=== PATIENT | male | born 1935 | race Caucasian/White ===

== ENCOUNTER → 2016-12-08 | Outpatient (CLI) | payer MEDICARE, BC ==
[~2016-12-08] MED LIST: ALBUTEROL2.5 MG/31 INH; APRESOLINE50 MG PO; ASCORBIC ACID500 MG PO; ASPIRIN LO-DOSE81 MG PO; BREO ELLIPTA 21 EACH INH; BUMEX1 MG PO; CATAPRES0.3 MG PO; COLACE100 MG PO; COREG12.5 MG PO; COZAAR50 MG PO; CPAP INH; DULCOLAX10 MG R; FISH OIL 1,0001 EAC1 PO; FLORASTOR250 MG PO; GLUCAGON EMERGEN1 MG SUB-Q; GLUCOPHAGE1000 MG; GLUCOPHAGE500 MG; GLUCOSE4 GM PO; IMDUR30 MG PO; INCRUSE ELLI62.5 MCG INH; K-TAB 10MEQ10 MEQ PO; LASIX40 MG PO; LEVAQUIN750 MG PO; LEVEMIR FL100 UNIT/1 SUB-Q; MILK OF MA400 MG/5 M PO; MIRALAX17 GM PO; NEURONTIN300 MG PO; NORCO 5-325 TA1 EACH PO; NORVASC10 MG PO; NOVOLOG100 UNIT/M SUB-Q; OSCAL + D500 MG PO; OXYGEN M-15 INH; PRESERVISION A1 EAC2 PO; THERA PO; TYLENOL EXTRA500 MG PO; ZANTAC150 MG PO; ZAROXOLYN5 MG
== END | disposition disaster alternative care site (69) ==
LOC: GRAD 11:30
DX: N28.9 Disorder of kidney and ureter, unspecified (principal); N28.1 Cyst of kidney, acquired

== ENCOUNTER 2017-02-26 17:00 | Inpatient (IN) | payer MEDICARE, BC ==
[~2017-02-26] VITALS: Ht 182.9 cm; Wt 92.6 kg
--- NOTE | ~2017-02-26 | DS ---
PATIENT'S NAME: SANTO SOLIMAN [facility] AGE: 81 Y [address] ROOM: [place] [address] LOCATION: GPCU ADMIT DATE: 02/26/2017 Discharge Summary DISCHARGE DATE: 03/05/2017 FAMILY PHYSICIAN: Lg Yarbrough MD ATTENDING PHYSICIAN: Mireya Hoff PRIMARY DIAGNOSES: 1. Acute on chronic hypoxic and hypercapnic respiratory failure. 2. Acute on chronic diastolic congestive heart failure. 3. Acute encephalopathy, hypoxic. 4. Acute kidney injury. 5. Chronic kidney disease, stage 3 to 4. 6. Essential hypertension. 7. Diabetes mellitus type 2. 8. Anemia of chronic kidney disease. 9. Gait instability. 10. Generalized weakness. 11. Lung cancer, status post radiation. 12. History of prostate cancer, status post radiation. 13. Obstructive sleep apnea. OPERATIONS/PROCEDURES: 1. Renal ultrasound was performed 02/27/2017, demonstrating no acute findings. 2. CT scan of the brain obtained 02/26/2017, negative for any acute intracranial abnormality. 3. CT scan of the abdomen and pelvis, 02/28/2017, demonstrated no hydronephrosis, bilateral pleural effusions and a left inguinal hernia containing fat. 4. Echocardiogram obtained 03/02/2017 showed ejection fraction 65%, grade 1 diastolic dysfunction. HISTORY OF PRESENTING ILLNESS/REASON FOR ADMISSION: Please refer to H and P dictated 02/26/2017. HOSPITAL COURSE: The patient has been admitted to the hospital as noted above with a presumptive diagnosis of acute on chronic diastolic congestive heart failure and acute on chronic hypoxic respiratory failure. He was transferred here from [facility] for impending hemodialysis, not available at that facility. He was seen in conjunction with Nephrology. Hunter catheter had been placed to promote diuresis, and he received IV diuresis with Bumex. He actually had good results with that, and his respiratory status improved. PATIENT'S NAME: SANTO SOLIMAN [facility] AGE: 81 Y [address] ROOM: [place] [address] LOCATION: GPCU ADMIT DATE: 02/26/2017 Discharge Summary DISCHARGE DATE: 03/05/2017 FAMILY PHYSICIAN: Lg Yarbrough MD ATTENDING PHYSICIAN: Mireya Hoff He did have CT scan of the head to evaluate encephalopathy. His encephalopathy improved with aggressive pulmonary hygiene and persistent diuresis. By the second day of his hospital stay here, he was back at baseline. He continued to receive diuresis and close clinical monitoring. He remained hemodynamically stable over the course of his hospital stay. Respiratory Therapy assisted with attention to pulmonary hygiene. Echocardiogram was obtained with the results as outlined above. His creatinine at the point of admission was 4.6. It did resolve to 4.2 by day #3 and remained relatively stable thereafter. His creatinine was 4.1 on the date of discharge. His fluid volume balance was negative. He did receive physical therapy and occupational therapy for strengthening and rehabilitation. We did discuss discharge planning with the patient and his . He was initially very reluctant to consider transfer to [place], however, it was felt that this would be required for continued intermediate care including physical therapy, occupational therapy, and close clinical monitoring. Dr. Agarwal requested vascular surgery consultation, and this was set up for outpatient. The patient was agreeable to consideration for AV fistula placement. By the end of the 6th day of his hospital stay, it was felt he would be stable enough for discharge to [facility] [place] with plans for close clinical followup with Nephrology as well as outpatient followup with his primary care provider, Dr. Lg Yarbrough, and outpatient followup with Vascular Surgery for vein mapping and ultimately AV fistula placement. DISCHARGE INSTRUCTIONS: Diet: Renal prudent ADA 2000-calorie per day as tolerated. Activity: As tolerated. He will have physical therapy, occupational therapy. MEDICATIONS: 1. Amlodipine 10 mg p.o. daily. 2. Ascorbic acid 500 mg p.o. daily. 3. Aspirin 81 mg p.o. daily. 4. Carvedilol 12.5 mg p.o. b.i.d. 5. Clonidine 0.3 mg p.o. t.i.d. 6. Hydralazine 50 mg p.o. t.i.d. 7. Insulin detemir 6 units subcutaneous q.a.m. 8. Insulin NovoLog per mild sliding scale. 9. Isosorbide mononitrate 30 mg p.o. b.i.d. 10. Multivitamin daily. 11. Holcomb-3 fish oil 1000 mg p.o. t.i.d. 12. Albuterol HFA 2 puffs p.o. b.i.d. and per nebulizer q.4 hours p.r.n. PATIENT'S NAME: SANTO SOLIMAN [facility] AGE: 81 Y [address] ROOM: [id number] [place], [place] [address] LOCATION: GPCU ADMIT DATE: 02/26/2017 Discharge Summary DISCHARGE DATE: 03/05/2017 FAMILY PHYSICIAN: Lg Yarbrough MD ATTENDING PHYSICIAN: Mireya Hoff 13. Acetaminophen 1000 mg p.o. q.6 hours p.r.n. 14. Colace 100 mg p.o. b.i.d. 15. Glucagon 1 mg subcu daily p.r.n. 16. Glucose 16 g p.o. daily p.r.n. 17. MiraLAX 17 g p.o. daily p.r.n. constipation. 18. Calcium with vitamin D 1 tablet p.o. t.i.d. 19. Incruse Ellipta 62.5 mcg one puff daily. 20. Breo Ellipta one puff daily. 21. Ranitidine 150 mg p.o. at bedtime. 22. Oxygen 4 L per nasal cannula continuously. 23. CPAP at bedtime. 24. Bumex 2 mg p.o. daily. FOLLOWUP: He will have followup with Dr. Lg Yarbrough in 5 to 7 days. He will follow up with Dr. Lester for vein mapping next week. He will follow up with Dr. Agarwal, Nephrology, in 1 week. CONDITION ON DISCHARGE: Fair. TOTAL TIME SPENT ON DISCHARGE PROCESS: 60 minutes. MD BRAYDON DELA CRUZ/lei /[id number] d: 03/06/172 t: 03/18/17 1814, DISCHARGE SUMMARY
--- NOTE | ~2017-02-26 | CON ---
PATIENT'S NAME: SANTO SOLIMAN [facility] AGE: 81 Y [address] ROOM: [place] [address] LOCATION: GPCU ADMIT DATE: 02/26/2017 Consultation DISCHARGE DATE: FAMILY PHYSICIAN: Lg Yarbrough MD ATTENDING PHYSICIAN: Kavya LUEVANO DATE OF CONSULTATION: 03/04/2017 REFERRING PHYSICIAN: PENNIE OMALLEY REASON FOR CONSULT: The patient with acute on chronic kidney disease in need of AV fistula creation. HISTORY OF PRESENT ILLNESS: This is an 81-year-old male, currently admitted to [facility] with elevated creatinine and shortness of breath. The patient has a chronic history of stage 4 chronic kidney disease from diabetes and hypertension. The patient was admitted at [facility] on February 17, 2017, initially admitted for headache and elevated hypertension. At that time, he was noted to have elevated creatinine. He was treated with blood pressure medication and diuretics. The patient's creatinine did not improve and continued to increase. The patient did get transferred to [facility] because of no nephrology coverage at [facility]. We are asked to see the patient in regard to creating an AV fistula to be ready for any future need of hemodialysis. The patient is alert and oriented during the interview. He denies any chest pain or shortness of breath. Denies any fevers or chills. Denies any cough. Denies any claudication or edema. PAST MEDICAL HISTORY: 1. Diabetes mellitus type 2. 2. Chronic kidney disease, stage 4. 3. Hypertension. 4. COPD. 5. Lung cancer, status post radiation. 6. Prostate cancer, status post radiation. 7. Obstructive sleep apnea. 8. Congestive heart failure, diastolic, from last echo in 2014. 9. Proteinuria. PAST SURGICAL HISTORY: No prior surgery. FAMILY HISTORY: Brother who of leukemia. PATIENT'S NAME: SANTO SOLIMAN [facility] AGE: 81 Y [address] ROOM: [place] [address] LOCATION: GPCU ADMIT DATE: 02/26/2017 Consultation DISCHARGE DATE: FAMILY PHYSICIAN: Lg Yarbrough MD ATTENDING PHYSICIAN: Kavya LUEVANO SOCIAL HISTORY: The patient lives in [place] with his life. He is a former smoker, but quit in 1985. He denies any alcohol or illicit drug use. ALLERGIES: TRAMADOL. CURRENT MEDICATIONS: See medication reconciliation. REVIEW OF SYSTEMS: A 10-point review of systems completed. Positives addressed in the history of presenting illness. PHYSICAL EXAMINATION: VITAL SIGNS: Temperature 98.4, heart rate 62, respiratory rate 16, blood pressure 142/64, oxygen saturations 92% on 2 L. GENERAL: The patient is alert and oriented x3. He is a good historian and in no acute distress. SKIN: Warm, pink, and dry. No rashes or ulcers. HEENT: Head normocephalic and atraumatic. Ears without drainage. Eyes: Sclerae white. Conjunctivae pink. Extraocular movements intact. Nose: Without drainage. Throat: Oral mucosa pink and moist. No exudate or erythema. NECK: Without adenopathy. No carotid bruit. RESPIRATORY: Lung sounds clear to auscultation bilaterally, even and unlabored. CARDIOVASCULAR: Regular rate and rhythm. No murmur or extra sounds. GASTROINTESTINAL: Bowel sounds are active x4. Soft and nontender. EXTREMITIES: Bilateral arms without trauma. He does have an IV to his left forearm. Brachial and radial pulses are 2+ on palpation. No cyanosis. No edema. Active range of motion throughout. NEUROLOGICAL: No focal deficits. Moves all extremities. Strength 5/5 bilaterally. LABORATORY DATA: Chemistry: Sodium 142, potassium 4.0, chloride 107, CO2 of 26, BUN 59, creatinine 4.4, glucose 136. Hematology: White blood cell count 4.8, hemoglobin 8.4, hematocrit 26.1, platelets 137. IMPRESSION AND PLAN: Acute on chronic kidney disease. Creatinine currently 4.4. The patient is an appropriate candidate for fistula creation. Therefore, we will go ahead and obtain fistula vein mapping today while the patient is inpatient. The patient will potentially be discharging tomorrow. Dr. Lester is out of town until PATIENT'S NAME: SANTO SOLIMAN [facility] AGE: 81 Y [address] ROOM: [id number] [place], [place] [address] [facility] ADMIT DATE: 02/26/2017 Consultation DISCHARGE DATE: FAMILY PHYSICIAN: Lg Yarbrough MD ATTENDING PHYSICIAN: Kavya LUEVANO next week. We will plan for surgery as an outpatient. The patient is right handed, so it would be best to plan for a left arm arteriovenous fistula. However, if the patient's veins are not adequate on vein mapping, he would require an arteriovenous graft. PATRICIA GARCIA APRN FOR KENYATTA LESTER MD TO/lei /[id number] d: 03/04/17 2211 t: 03/11/17 1054, CONSULTATION REPORT
--- NOTE | ~2017-02-26 | HP ---
PATIENT'S NAME: SANTO SOLIMAN [facility] AGE: 81 Y [address] ROOM: [id number] [place], [place] [address] LOCATION: GPCU ADMIT DATE: 02/26/2017 History & Physical DISCHARGE DATE: FAMILY PHYSICIAN: PHYSICIAN, UNKNOWN ATTENDING PHYSICIAN: Kavya LUEVANO DATE OF SERVICE: CHIEF COMPLAINT: DOE. HISTORY OF PRESENT ILLNESS: The patient is an 81-year-old gentleman with history of CKD, stage 3 to 4, hypertension, diabetes mellitus, COPD, history of lung cancer and prostate cancer, status post radiation in remission who presents from [facility] due to acute kidney injury. The patient was admitted at [facility] on February 17, 2017. The patient was initially admitted for headache and elevated hypertension. On admission, the patient was noted to have elevated creatinine. The patient was admitted in [facility] and was treated with blood pressure medication and also with diuretics. The patient's creatinine did not improve and continued to increase on admission, according to Dr. Justin Juniro who has seen him at the hospital. His initial creatinine was 3 and on discharge his creatinine 4.6. Also, the patient also noted to have hyperkalemia with this issue. The patient was seen by Dr. Agarwal at [facility] and the patient was transferred to our hospital since Dr. Agarwal is on vacation and the patient might need dialysis over the weekends. The patient also was noted to have proteinuria on urine workup. Apparently, the patient has had some intermittent confusion during stay. No workup has been done about his confusion. According to , the patient has a history of dementia and is forgetful. The patient currently denies any chest pain, shortness of breath, abdominal pain, fever, cough, nausea, vomiting, diarrhea, and headache. Of note, the patient has chronic hypoxic respiratory failure and is on 4 L home oxygen. PAST MEDICAL HISTORY: Diabetes mellitus, type 2, CKD, stage 3 to 4, hypertension, COPD, lung cancer, status post radiation, prostate cancer, status post radiation, obstructive sleep apnea, and CHF, which seem to be diastolic at least from the last echo that we have in 2014. PAST SURGICAL HISTORY: reports and the patient reports no surgical history. FAMILY HISTORY: reports that his brother from leukemia. PATIENT'S NAME: BALS, SANTO H [facility] AGE: 81 Y [address] ROOM: [id number] [place], [place] [address] [facility] AD[facility]: 02/26/2017 History & Physical DISCHARGE DATE: FAMILY PHYSICIAN: PHYSICIAN, UNKNOWN ATTENDING PHYSICIAN: Kavya LUEVANO SOCIAL HISTORY: He is a former smoker and stopped smoking in 1985. He lives with his . MEDICATIONS: Medication is currently been reconciled. REVIEW OF SYSTEMS: All systems have been reviewed and are negative except for what I mentioned. PHYSICAL EXAMINATION: VITAL SIGNS: Afebrile, blood pressure 162/72, heart rate 76, 92% oxygen sat on 4 L. GENERAL APPEARANCE: The patient is alert and awake in no acute distress. HEAD: Normocephalic, atraumatic. EYES: Extraocular muscle intact. No discharge. NOSE: No nasal discharge. EARS: No ear discharge. ORAL CAVITY: Moist oral cavity. CHEST: Clear to auscultation bilaterally. HEART: Regular rate and rhythm. No murmurs, rubs, or gallops. ABDOMEN: Soft, nontender, and nondistended. Bowel sounds present. EXTREMITIES: Lower extremity +2 pitting edema bilaterally. SKIN: Warm to touch. SUPERVISOR PLASMA: The patient is alert and oriented x2. The patient is not oriented to place. Motor and sensory grossly intact. LABORATORY DATA: 1. Labs drawn from [facility] today shows sodium of 133, potassium of 5.4, chloride of 106, CO2 of 25, BUN of 89, creatinine of 8.5, calcium of 10.6, and albumin of 2.8. His white blood cell count is 8.3, hemoglobin 9.2, and platelet of 177. 2. Tele shows normal sinus rhythm with corrected calcium 11.6. ASSESSMENT AND PLAN: 1. Acute kidney injury. The patient is an 81-year-old gentleman with a past medical history of chronic kidney disease, stage 3 to 4, who presents here from outside hospital with acute kidney injury on chronic kidney disease. The patient initially was found to have elevated hypertension on admission; however, blood pressure has been stabilized since admission at [facility]. The patient was tried on a trial of diuretics without adequate improvement. His creatinine is currently 4.8 and potassium 5.4 at least from the last lab. Etiology seems to be secondary to hypertension and diabetic; however, the patient was also showing elevated calcium at 11.6 corrected and has a history of cancer. We will PATIENT'S NAME: SANTO SOLIMAN [facility] AGE: 81 Y [address] ROOM: [id number] [place], [place] [address] [facility] DATE: 02/26/2017 History & Physical DISCHARGE DATE: FAMILY PHYSICIAN: PHYSICIAN, UNKNOWN ATTENDING PHYSICIAN: Kavya LUEVANO workup calcium elevation. We will also acquire kidney ultrasound as there is no kidney ultrasound done at [facility]. We will give a trial of intravenous fluids since the patient has elevated calcium and since he has somewhat failed diuretics. The patient appears might be having pitting edema, but might be intravascularly depleted. Nephrology consulted and discussed with Dr. Blancas. There is no need for emergent dialysis at this moment. We will follow the patient clinically. 2. Hypercalcemia, etiology unknown, calcium 11.6. At [facility], the patient was given calcium supplement and we will stop that. We will acquire urine creatinine, urine calcium, urine osmol, vitamin D-125 hydroxy level, PTH intact, and PTH related peptide. After these labs, we will revaluate and follow the patient clinically. Also, discussed this finding with Dr. Blancas. 3. Chronic hypoxic respiratory failure, continue home oxygen 4 L. 4. Accelerated hypertension, stable. We will continue hydralazine, amlodipine, Coreg, and clonidine. We will hold diuretics for now. We will also add Imdur. 5. Hyperkalemia, etiology secondary to acute kidney injury, holding the diuretics for now. We will acquire another renal function panel and also acquire EKG. Last potassium was 5.4. We will start intravenous fluid. We will follow potassium closely. 6. Diabetes mellitus, type 2. Continue sliding scale insulin with aspart with low-dose and Accu-Chek a.c. h.s. 7. Headache. The patient presented with headache and some worsening of confusion. The patient has a history of dementia. The patient currently alert and oriented x2. We will acquire CT head to further investigate. 8. History of prostate and lung cancer, status post radiation, follow up with oncologist as outpatient. 9. Congestive heart failure, which appears diastolic congestive heart failure, we will acquire new echo. The patient appears compensated now. We will hold diuretics. 10. Dementia, ongoing. I have personally reviewed the patient's medical record including, but not limited to blood work and radiology report. Total time spent with the patient is greater than 70 minutes more than 50% of the time is spent in direct patient care and patient consultation. Case was reviewed with the patient and . All question was answered. Case was reviewed with Nephrology Dr. Blancas. We will admit the patient for acute kidney injury. BASSEM CACERES MD AD/modl PATIENT'S NAME: SANTO SOLIMAN [facility] AGE: 81 Y [address] ROOM: [address] [address] [facility] AD[facility] DATE: 02/26/2017 History & Physical DISCHARGE DATE: FAMILY PHYSICIAN: PHYSICIAN, UNKNOWN ATTENDING PHYSICIAN: Kavya LUEVANO /[id number] D: [id number] T: [id number] HISTORY & PHYSICAL
--- NOTE | ~2017-02-26 | CON ---
[facility] AGE: 81 Y [address] ROOM: [place] [address] LOCATION: GPCU ADMIT DATE: 02/26/2017 Consultation DISCHARGE DATE: FAMILY PHYSICIAN: PHYSICIAN, UNKNOWN ATTENDING PHYSICIAN: Kavya LUEVANO DATE OF CONSULTATION: 02/28/2017 REFERRING PHYSICIAN: PENNIE OMALLEY REQUESTING PHYSICIAN: Matthew Espinoza MD. REASON FOR CONSULTATION: Elevated BUN and creatinine and shortness of breath. HISTORY OF PRESENT ILLNESS: The patient is an 81-year-old, white male with history of stage 4 chronic kidney disease from diabetes and hypertension. He also had acute kidney injury in 2013 and after that his kidney function did not improve. The patient does have approximately 2 g of proteinuria and workup is in progress. The patient was recently hospitalized at [facility] with accelerated hypertension and weakness. His creatinine at that point had gone up to a maximum of 4.6. He is still making urine. The patient did get transferred to [facility] because there was no nephrology coverage at [facility]. I have been asked to see him, and this morning his creatinine is 4.2. The patient suddenly got short of breath. He does have chronic congestive heart failure from diastolic dysfunction. He is normally on 4 L of oxygen. He also has a history of lung cancer and prostate cancer. REVIEW OF SYSTEMS: GENERAL: He denies any fever, chills, or rigors. He is weak and tired. HEENT: Denies any sore throat or sinus congestion. CARDIOVASCULAR: Denies chest pain. He has orthopnea. RESPIRATORY: Denies any cough or sputum production. GI: He has poor appetite. : Denies any dysuria or frequency. MUSCULOSKELETAL: Denies any joint pain or swelling. SKIN: Denies any rash or pruritus. Denies any allergies or hay fever. LYMPHATIC/HEMATOLOGIC: Denied any lymph enlargement or easy bruising. Denies any heat or cold intolerance. PSYCHIATRIC: Denies any sadness, crying spells, poor concentration, or panic attack. PAST MEDICAL HISTORY: PATIENT'S NAME: [facility] AGE: 81 Y [address] ROOM: [place] [address] LOCATION: GPCU ADMIT DATE: 02/26/2017 Consultation DISCHARGE DATE: FAMILY PHYSICIAN: PHYSICIAN, UNKNOWN ATTENDING PHYSICIAN: Kavya LUEVANO Stage 4 chronic kidney disease, proteinuria, hypertension, COPD, diabetes mellitus, lung cancer, status post radiation therapy, prostate cancer, obstructive sleep apnea, congestive heart failure from diastolic dysfunction. PAST SURGICAL HISTORY: No prior surgery. SOCIAL HISTORY: He lives in [place] with his . He is a former smoker, quit smoking in 1985. FAMILY HISTORY: One brother of leukemia. MEDICATIONS: 1. Albuterol sulfate one puff twice a day. 2. Lasix 40 mg IV every day. 3. Hydralazine 50 mg 3 times a day. 4. Aspirin 81 mg a day. 5. Catapres 0.3 mg 3 times a day. 6. Coreg 12.5 mg twice a day. 7. Fish oil 1000 mg 3 times a day. 8. Humibid LA 1200 mg twice a day. 9. Imdur 30 mg every day. 10. Norvasc 10 mg a day. 11. Pepcid 20 mg q.h.s. 12. Protonix 40 mg a day. 13. Multivitamin once a day. 14. NovoLog by sliding scale. 15. Levemir 6 units subcutaneously every morning. PHYSICAL EXAMINATION: GENERAL APPEARANCE: This is an 81-year-old, white male, lying in the hospital bed, wearing oxygen via nasal cannula. VITAL SIGNS: Temperature 97.7, pulse 74, systolic blood pressure 160, diastolic 70. HEAD: Normocephalic. HEENT: Pupils are round and equal. Normal eyelids and conjunctivae. Oral cavity is clear. Moist mucosa. NECK: Trachea is central. No thyromegaly. Jugular venous pulsation at 10 cm. CARDIAC: Heart sounds are audible in all the areas without any gallop or murmur. There is no pericardial rub. Pulses regular in rhythm. LUNGS: The patient has diminished breath sounds as a whole and he has bibasilar rhonchi. PATIENT'S NAME: SANTO SOLIMAN [facility] AGE: 81 Y [address] ROOM: [place] [address] [facility] ADMIT DATE: 02/26/2017 Consultation DISCHARGE DATE: FAMILY PHYSICIAN: PHYSICIAN, UNKNOWN ATTENDING PHYSICIAN: Kavya LUEVANO ABDOMEN: Soft, nontender. EXTREMITIES: He has no clubbing or cyanosis. SKIN: No signs of vasculitis. LYMPHATICS: Did not examine lymphatics. HIGHER PSYCHIATRIC FUNCTION. Normal memory and speech. LABORATORY DATA: Sodium 144, potassium 4.7, chloride 110, bicarb of 20, BUN 83, creatinine 4.2, calcium 8.4, albumin of 2.3, GFR 14. Hemoglobin 8.3, hematocrit 26.1, and platelet count of 141. ASSESSMENT: 1. Acute on chronic kidney injury, etiology remains unclear, but this could be related to accelerated hypertension. The patient was noted to have a high blood pressure when he was admitted to the [facility]. He does have proteinuria and he has not had a kidney biopsy. The patient does carry a diagnosis of diabetes. 2. Stage 4 chronic kidney disease. 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 3. Chronic obstructive pulmonary disease. 4. Hypertension. 5. History of lung and prostate cancers. 6. Chronic congestive heart failure from diastolic dysfunction. PLAN: The patient is short of breath and he has prominent jugular veins, is most likely in active heart failure. I will give him 4 mg of IV Bumex and if he does not respond to this, then we may have to consider doing hemodialysis therapy. I have extensive discussion with him and also with his family members about his chronic kidney status. Kidneys are working about 10-15% of what it should have been for his age and sex. He may not only need temporary dialysis, but he may require long-term dialysis therapy. I will educate him further about renal replacement therapy and he will decide whether he will go for renal replacement therapy or not. I will follow his renal function very closely. I would like to thank Dr. Espinoza for allowing me to participate in this patient's care. M PARK CUENCA MD PATIENT'S NAME: SANTO SOLIMAN [facility] AGE: 81 Y [address] ROOM: [place] [address] LOCATION: [facility] ADMIT DATE: 02/26/2017 Consultation DISCHARGE DATE: FAMILY PHYSICIAN: PHYSICIAN, UNKNOWN ATTENDING PHYSICIAN: Kavya LUEVANO /[id number] d: 02/28/17 1248 t: 03/04/17 1326, CONSULTATION REPORT
--- NOTE | ~2017-02-26 | ECHO ---
Transthoracic Echocardiography Report (TTE) Demographics Patient Name SANTO SOLIMAN Date of Study 03/02/2017 Patient Number [id number] Visit Number [id number] Date of 1935 Room Number G6339 Gender Male Number Age 81 year(s) Referring Zenon Christy MD Patient Escort Oniel RVT, [facility] Physician Erin Physician Interpreting Hayden Waldrop MD Director Of Dementia Operations Physician Supervising Ordering Mireya Hoff MD/TITO Physician Nurse Stress Nuisance Animal Damage Control Agent Conclusions Contractility Score Summary Normal Left Ventricular contractility was noted. Summary Normal LV/RV size and systolic function. LV systolic function is 65%. Mild concentric left ventricular hypertrophy. Diastolic assessment reveals Grade I diastolic dysfunction. The right atrium is mild to moderately dilated. The left atrium is mildly dilated. Procedure Type of Study TTE procedure:2D Echocardiogram, M-Mode, Doppler , Color Doppler. Procedure Date Date: 03/02/2017 Start: 07:18 AM Study Location: Inpatient Portable Technical Quality: Adequate visualization Indications:CHF. Appropriate Use Criteria: 9 Patient Status: Routine HR: 64 bpm BP: 150/67 mmHg M-Mode/2D Measurements LV Diastolic Dimension: 4.34 cm LV Systolic Dimension: 2.46 cm LV Septum Diastolic: 1.25 cm LV PW Diastolic: 1.32 cm AO Root Dimension: 2.7 cm Cardiac Output: 6.51 l/min AV Cusp Separation: 1.9 cm RV Diastolic Dimension: 3.24 cm LA volume: 44 ml LVOT: 2 cm RV Base: 3.49 cm LVOT VTI: 32.4 cm RV Mid: 2.61 cm LV Stroke volume: 101.74 ml TAPSE: 1.97 cm TDI-S': 17.8 cm/s Doppler Measurements AV Peak Velocity: 1.72 m/s MV Peak E-Wave: 1.09 m/s AV Peak Gradient: 11.83 mmHg MV Peak A-Wave: 1.47 m/s AV Mean Gradient: 8 mmHg MV E/A Ratio: 0.74 LVOT Peak Velocity: 1.09 m/s MV P1/2t: 95 msec TR Gradient:26.63 mmHg PV Peak Velocity: 0.94 m/s Estimated RAP:3 mmHg PV Peak Gradient: 3.55 mmHg Estimated RVSP: 30 mmHg Estimated PASP: 29.63 mmHg E' Septal Velocity: 0.06 m/s A' Septal Velocity: 0.08 m/s E' Lateral Velocity: 0.09 m/s A' Lateral Velocity: 0.14 m/s Findings Left Ventricle Mild concentric left ventricular hypertrophy. Diastolic assessment reveals Grade I diastolic dysfunction. Right Ventricle Normal right ventricle structure and function. Left Atrium The left atrium is mildly dilated. Right Atrium The right atrium is mild to moderately dilated. Mitral Valve Trivial mitral regurgitation by color Doppler. Mild mitral annular calcification. Aortic Valve Normal aortic valve structure and function. Tricuspid Valve Trivial tricuspid regurgitation by color Doppler. Pulmonic Valve The pulmonic valve is not well visualized. Pericardial Effusion No evidence of pericardial effusion. Pleural Effusion No evidence of pleural effusion. Contractility Score LV regional wall motion:(0-Non visualized 1-Normal 2-Hypokinesis 3-Akinesis 4-Dyskinesis 5-Aneurysm) Signature dtt: LIYA LUX dtd: 03/02/17 0718 Physician Self Edit
[~2017-02-26 17:00] MED LIST changes: -APRESOLINE50 MG PO; -BUMEX1 MG PO; -COLACE100 MG PO; -COZAAR50 MG PO; -DULCOLAX10 MG R; -GLUCAGON EMERGEN1 MG SUB-Q; -GLUCOSE4 GM PO; -IMDUR30 MG PO; -MILK OF MA400 MG/5 M PO; -NORCO 5-325 TA1 EACH PO; -NOVOLOG100 UNIT/M SUB-Q; -PRESERVISION A1 EAC2 PO; -THERA PO
[2017-02-26] MEDS ORDERED: ALBUTEROL2.5 MG/31 INH (19:18)
[2017-02-26] MEDS ORDERED: PRESERVISION A1 EAC2 PO (19:29)
[2017-02-26] MEDS ORDERED: COLACE100 MG PO (19:31)
[2017-02-26] MEDS ORDERED: COZAAR50 MG PO (19:31)
--- NOTE | 2017-02-26 20:23 | NUR ---
Patient is 81 yo male admitted this evening for HTN w/kidney dysfunction from [facility]. pt has been a patient there for 9 days. went to the ER there for weakness, HTN and headache. had thought he was getting weaker for 3 days prior to admission. Patient lives with in [place]. He used to live at [place] where he was a anthony. 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 patient is very pleasant. seems to answer questions appropriately, but the is some question of his memory. saline lock is noted in left forearm without erythema or edema noted at site. Education is given as documented. patient, and son deny questions. pneumatics are on bilat calves. call light is within reach. patient denies needs at this time. report is given to JANENE Rogel.
[2017-02-26 20:32] LABS: ALBUMIN 2.8 gm/dL (3.5-5.0); ANION GAP 14.4 (10.0-19.0); CALCIUM 9.9 mg/dL (8.5-10.5); POTASSIUM 5.4 mMol/L (3.7-5.1); TOTAL BILIRUBIN 0.4 mg/dL (0.0-1.5); TOTAL PROTEIN 6.5 g/dL (6.0-8.4)
[2017-02-26 20:34] LABS: CREATININE 4.6 mg/dL (0.6-1.3)
--- NOTE | 2017-02-26 23:53 | NUR ---
Patient hadn't been felling well at home weakness, high blood pressure, and headaches. Admitted to [facility] on 02/17. Transferred here for DOE. Patient oriented to self and time but disoriented to place. VSS on 4L NC. Lung course and wheezy, harsh productive cough. Bowel sounds present. New IV to LT forearm NS at 100ml/hr. Bottom and ibraihma area reddened. ISSA and Renal US in am. NPO. Dr. Blancas to see in am.
--- NOTE | 2017-02-27 04:53 | NUR ---
Patient A/O to person, very forgetful, easily reoriented. VSS on 4L per home. One assist with walker. Lungs course/wheezy. Bowel sounds present, 1 LG BM this shift. IV to LT forarm NS at 100ml/hr. Uses urinal at bedside. Bed alarm patient is impulsive but sometimes uses call light. NPO for renal US this am.
[2017-02-27 06:20] LABS: HEMOGLOBIN 8.7 g/dL (11.0-16.0); MCH 29.3 pg (27.0-34.0); MCHC 32.2 gm/dL (32.0-36.5); MCV 90.9 fl (83.0-98.0); MPV 10.2 fl (9.4-12.4); PLATELET COUNT 144 K/uL (150-450); RBC 2.97 M/uL (3.50-5.50); RDW-CV 14.2 % (11.9-14.6); WBC 6.3 K/uL (4.0-11.0)
[2017-02-27 06:34] LABS: ALBUMIN 2.4 gm/dL (3.5-5.0); ANION GAP 13.9 (10.0-19.0); CALCIUM 9.1 mg/dL (8.5-10.5); CREATININE 4.3 mg/dL (0.6-1.3); POTASSIUM 4.9 mMol/L (3.7-5.1); TOTAL BILIRUBIN 0.4 mg/dL (0.0-1.5); TOTAL PROTEIN 5.4 g/dL (6.0-8.4)
[2017-02-27 06:51] LABS: ABSOLUTE NEUTROPHIL CT (ANC) 4.7 K/uL (1.4-9.0); BANDED NEUTROPHIL # 0.3 K/uL (0.0-0.1); BANDED NEUTROPHILS % 4 %; LYMPHOCYTE # 0.5 K/uL (0.8-4.0); LYMPHOCYTE % 8 %; MONOCYTE # 0.9 K/uL (0.0-1.0); SEGMENTED NEUTROPHIL # 4.4 K/uL (1.4-9.0); SEGMENTED NEUTROPHIL % 70 %
--- NOTE | 2017-02-27 09:29 | NUR ---
PT SCREENED D/T (+) MST. PT W/ GOOD APPETITE, EATING 75-100%. BMI IN OVERWEIGHT RANGE. BASED ON CURRENT DATA, NOT AT RISK. WILL ASSIST NEEDED.
--- NOTE | 2017-02-27 16:23 | NUR ---
Significant event: Alert. Oriented, but forgetful. Needs bed alarm on at all times, forgets limitations. Renal u/s and echo done today. Monitoring renal status, dialysis not needed as of right now. On 4L O2, to wean to keep sats 88-95%, patient does wear 4 L 02 at home, and a CPAP HS. will bring CPAP and inhalers tomorrow morning. SBP this AM 170-180, given scheduled BP meds, has since been 120-140's. NS decreased to 70 ml/hr, need accurate I&O's. Groins looking slightly better today, not as red. Buttock's still excoriated, using moisture barrier cream as needed. Had smear this AM. Using urinal. Had 400 ml UOP. Lung sounds expiratory wheezes at times, fine crackles to bases, cough with thick brown sputum at x's, has not been able to obtain sputum culture yet. Follow Up: Continue to monitor per POC
[2017-02-28 02:55] LABS: HEMATOCRIT 26.1 % (33.0-50.0); HEMOGLOBIN 8.3 g/dL (11.0-16.0); MCH 29.2 pg (27.0-34.0); MCHC 31.8 gm/dL (32.0-36.5); MCV 91.9 fl (83.0-98.0); PLATELET COUNT 141 K/uL (150-450); RBC 2.84 M/uL (3.50-5.50); RDW-CV 14.2 % (11.9-14.6); WBC 5.5 K/uL (4.0-11.0)
[2017-02-28 03:13] LABS: ALBUMIN 2.3 gm/dL (3.5-5.0); ANION GAP 12.7 (10.0-19.0); CALCIUM 8.4 mg/dL (8.5-10.5); POTASSIUM 4.7 mMol/L (3.7-5.1); TOTAL PROTEIN 5.3 g/dL (6.0-8.4)
[2017-02-28 03:15] LABS: CREATININE 4.2 mg/dL (0.6-1.3); TOTAL BILIRUBIN 0.5 mg/dL (0.0-1.5)
[2017-02-28 04:00] LABS: ABSOLUTE NEUTROPHIL CT (ANC) 4.4 K/uL (1.4-9.0); BANDED NEUTROPHIL # 0.2 K/uL (0.0-0.1); BANDED NEUTROPHILS % 4 %; LYMPHOCYTE # 0.4 K/uL (0.8-4.0); LYMPHOCYTE % 8 %; MONOCYTE # 0.5 K/uL (0.0-1.0); SEGMENTED NEUTROPHIL # 4.1 K/uL (1.4-9.0); SEGMENTED NEUTROPHIL % 75 %
--- NOTE | 2017-02-28 04:20 | NUR ---
Significant Event: PATIENT IS DISORIENTED TO TIME AND FORGETFUL. VSS. HR 60'S. SBP 120-140'S. AFEBRILE. 02 SATS IN UPPER 80 TO LOW 90'S ON 4L 02 PER NC. NO C/O PAIN. LUNGS VARRIED FROM SLIGHT COARSE WITH CRACKLES TO EXPIRATORY WHEEZES THROUHGOUT. UP WITH 1A WITH WALKER/GB. BOWELS ACTIVE. INC ON VOID AT TIMES. VOIDS PER URINAL. BRIEF ON. BOTTOM REDNESS AND GROINS EXCORIATED BUT IMPROVED. ALOE APPLIED AND PATIENT TURNED Q2H. LEFT FOREARM IV WITH NS GOING AT 70ML/HR. ON [facility] ACCUCHECKS. Follow up: CONTINUE TO MONITOR PER PLAN OF CARE.
[2017-02-28 08:53] LABS: BICARBONATE 25.4 mmol/L (18.0-23.0); PCO2 40 mmHg (35-45); PO2 52 mmHg (80-90)
[2017-02-28 11:02] LABS: INR - (THERAPEUTIC) 0.95 (0.89-1.05)
--- NOTE | 2017-02-28 16:27 | NUR ---
Significant event: Alert, Oriented to person/place, disoriented to time, but will reorient. Short of breath this AM, tried breathing treatment with no relief. Lung sounds were expiratory wheezes throughout, slightly coarse in upper lobes and fine crackles to lower and mid lobes. MD notified, IVF d/c'd, 40 mg of lasix given at 0930. Hunter catheter was placed and immediately had 650 ml out. ABG's done, BIPAP initiated, c-xray done. Patient felt better at 1100, back to 4L NC. CT of abdomen done, showing no hydronephrosis. Patient has been resting, napping on/off. Follow Up: Continue to monitor, call if patient has shortness of breath again.
--- NOTE | 2017-03-01 04:12 | NUR ---
Significant Event: PATIENT IS DISORIENTED TO TIME AND FORGETFUL. VSS. HR 60'S. SBP 130-150'S. AFEBRILE. 02 SATS IN LOW TO MID 90'S CURRENTLY ON HOME CPAP. WEARS 4L 02 PER NC DURING DAY. NO C/O PAIN. LUNGS VARRIED FROM SLIGHT COARSE WITH CRACKLES ALONG WITH EXPIRATORY WHEEZES. BREATHING LABORED AND PATIENT MORE SOB AT BEGINNING OF SHIFT. DR CUENCA NOTIFIED AND 4MG IVP BUMEX GIVEN. PATIENT UP WITH 1A. BOWELS ACTIVE. JUNIOR INTACT WITH 1600 ML UOP. BOTTOM/GROIN REDNESS WITH EXCORIATION. ALOE APPLIED. IV TO LEFT FOREARM SL. ON ACHS ACCUCHECKS. Follow up: CONTINUE TO MONITOR RENAL FUNCTION AND PER PLAN OF CARE.
[2017-03-01 06:58] LABS: HEMATOCRIT 27.5 % (33.0-50.0); HEMOGLOBIN 8.8 g/dL (11.0-16.0); MCH 29.2 pg (27.0-34.0); MCV 91.4 fl (83.0-98.0); MPV 10.3 fl (9.4-12.4); PLATELET COUNT 133 K/uL (150-450); RBC 3.01 M/uL (3.50-5.50); RDW-CV 14.1 % (11.9-14.6); WBC 6.5 K/uL (4.0-11.0)
[2017-03-01 07:15] LABS: ALBUMIN 2.4 gm/dL (3.5-5.0); CALCIUM 8.4 mg/dL (8.5-10.5); TOTAL BILIRUBIN 0.5 mg/dL (0.0-1.5); TOTAL PROTEIN 5.6 g/dL (6.0-8.4)
[2017-03-01 07:16] LABS: CREATININE 4.2 mg/dL (0.6-1.3)
[2017-03-01 07:48] LABS: ABSOLUTE NEUTROPHIL CT (ANC) 5.2 K/uL (1.4-9.0); LYMPHOCYTE # 0.3 K/uL (0.8-4.0); LYMPHOCYTE % 5 %; MONOCYTE # 0.7 K/uL (0.0-1.0); SEGMENTED NEUTROPHIL # 5.2 K/uL (1.4-9.0); SEGMENTED NEUTROPHIL % 80 %
--- NOTE | 2017-03-01 17:06 | NUR ---
Significant Event: pt is a/o, forgetful @ times. Cooperative with cares. O2 4L. Will have IV bumex. Hunter patent. Harsh productive cough. Patient and family deciding if to start dialysis. No shortness of breath noted. up with 1 asssit, walker and gaitbelt. Follow up:
--- NOTE | 2017-03-02 04:29 | NUR ---
A/O. HR 50-60s. SBP 130-150s. 4L NC AND 4L WITH CPAP AT NOC. JUNIOR INTACT 1700ML UOP. DENIES PAIN. NO BM. MONITOR RENAL FUCTION. POSSIBLY START DIALYSIS.
[2017-03-02 05:03] LABS: HEMATOCRIT 26.7 % (33.0-50.0); HEMOGLOBIN 8.6 g/dL (11.0-16.0); MCH 29.4 pg (27.0-34.0); MCHC 32.2 gm/dL (32.0-36.5); MCV 91.1 fl (83.0-98.0); MPV 10.9 fl (9.4-12.4); PLATELET COUNT 130 K/uL (150-450); RBC 2.93 M/uL (3.50-5.50); WBC 4.8 K/uL (4.0-11.0)
[2017-03-02 05:26] LABS: ALBUMIN 2.2 gm/dL (3.5-5.0); ANION GAP 16.1 (10.0-19.0); CALCIUM 8.3 mg/dL (8.5-10.5); CREATININE 4.2 mg/dL (0.6-1.3); POTASSIUM 4.1 mMol/L (3.7-5.1); TOTAL BILIRUBIN 0.5 mg/dL (0.0-1.5); TOTAL PROTEIN 5.5 g/dL (6.0-8.4)
[2017-03-02 07:18] LABS: ABSOLUTE NEUTROPHIL CT (ANC) 3.9 K/uL (1.4-9.0); BANDED NEUTROPHIL # 0.2 K/uL (0.0-0.1); BANDED NEUTROPHILS % 4 %; LYMPHOCYTE # 0.1 K/uL (0.8-4.0); LYMPHOCYTE % 3 %; MONOCYTE # 0.6 K/uL (0.0-1.0); SEGMENTED NEUTROPHIL # 3.7 K/uL (1.4-9.0); SEGMENTED NEUTROPHIL % 77 %
--- NOTE | 2017-03-02 11:21 | NUR ---
Diabetes consult: Received a consult to provide the patient with diabetes education. The patient's was present during out interaction. The patient's reports taking care of her 's insulin and medication. Education was provided and guided by the diabetes survival checklist. Patient and deny any questions or needs. A1C is 6.9%. Blood sugar this morning controlled at 154.
--- NOTE | 2017-03-02 15:36 | NUR ---
Significant Event: A/O. VSS on 4L/NC per home dose. C/O headache today, order for norco obtained after tylenol did not seem to help as patient was still rating pain 5/10. at bedside. Hunter to DD. Up with 1 assist and walker. Follow up: cont plan of care.
--- NOTE | 2017-03-02 16:17 | NUR ---
Introduced self and role of care management to pt and . I discussed dc planning and she states they were working on this at [facility] then he was transferred up. She does know that [facility] stated they did not have a good room for him and [facility] in [place] is full. I mentioned [facility] and she stated they looked at him a well. She states she needs to make sure he is doing well with strength and if so will take home but if not will need a skilled stay. She stated go ahead and call around as well. I did call [place] and still full, I called [facility] and Erika states they have accepted pt already but will need to reevaluate him because it has been over a week. I explained I will call her tomorrow and send updates.
[2017-03-03 04:25] LABS: HEMOGLOBIN 8.6 g/dL (11.0-16.0); MCH 29.3 pg (27.0-34.0); MCHC 33.1 gm/dL (32.0-36.5); MCV 88.4 fl (83.0-98.0); MPV 10.4 fl (9.4-12.4); PLATELET COUNT 138 K/uL (150-450); RBC 2.94 M/uL (3.50-5.50); RDW-CV 13.8 % (11.9-14.6); WBC 4.7 K/uL (4.0-11.0)
--- NOTE | 2017-03-03 04:37 | NUR ---
Significant Event: VSS, PT AFEBRILE. CONTINUES ON 4L WITH EITHER NC OR CPAP, SATS HAVE BEEN 93%. PT ALERT BUT DISORIENTED TO TIME. NO CO PAIN OR DISCOMFORT. USES CALL LIGHT NEEDED. 4MG BUMEX GIVEN IV PER PUMP. Follow up:
[2017-03-03 04:47] LABS: ALBUMIN 2.4 gm/dL (3.5-5.0); ALK PHOS 37 IU/L (33-138); ALT 15 IU/L (12-78); ANION GAP 13.7 (10.0-19.0); AST < 5 IU/L (10-40); BLOOD UREA NITROGEN 75 mg/dL (6-24); CALCIUM 8.1 mg/dL (8.5-10.5); CHLORIDE 105 mMol/L (96-110); CO2 26 mMol/L (22-32); CREATININE 4.6 mg/dL (0.6-1.3); ESTIMATED GFR (MDRD EQUATION) 12; POTASSIUM 3.7 mMol/L (3.7-5.1); SODIUM 141 mMol/L (135-145); TOTAL BILIRUBIN 0.4 mg/dL (0.0-1.5); TOTAL PROTEIN 5.6 g/dL (6.0-8.4)
[2017-03-03 05:50] LABS: ABSOLUTE NEUTROPHIL CT (ANC) 3.7 K/uL (1.4-9.0); BANDED NEUTROPHIL # 0.2 K/uL (0.0-0.1); BANDED NEUTROPHILS % 4 %; LYMPHOCYTE # 0.5 K/uL (0.8-4.0); LYMPHOCYTE % 10 %; MONOCYTE # 0.1 K/uL (0.0-1.0); SEGMENTED NEUTROPHIL # 3.5 K/uL (1.4-9.0); SEGMENTED NEUTROPHIL % 75 %
--- NOTE | 2017-03-03 12:14 | NUR ---
I did talk with Dr Cheek and regarding pt and he thinks skilled care would be best due to being high readmission. I did tell him that prior [facility] had accepted him. I then spoke with pt and and explained they did accept and would need to reassss. Pt is really wanting home but and I encouraged him to look at this as a short stay and he is willing . I then called Erika with [facility] and she will be over this afternoon to assess. WIll continue to follow.
--- NOTE | 2017-03-03 16:13 | NUR ---
Erika from [facility] called and they will accept pt if they wish to come.
--- NOTE | 2017-03-03 17:49 | NUR ---
Significant Event: GOOD DAY UP IN RECLINER MOST OF THIS SHIFT, DENIES NEEDS, VERY PLEASENT. KIND OF WORRIED ABOUT MOVE TO [facility] AND HOW THINGS WILL BE TAKEN CARE OF......MEDS, ROOM, ROOM MATE, EATTING, DINNING ROOM, NEW NURSES.... Follow up: MONITOR, NEW BOTTLE OF INSULIN IN MED ROOM
--- NOTE | 2017-03-04 04:20 | NUR ---
Significant Event: Patient alert and oriented. Somewhat forgetful. VSS on 3L NC and Cpap with 4L bled in. 2 units insulin given for HS blood sugar of 206. Up 1-assist. Hunter patent. 975ml urine output. No BM this shift. No complaints of pain. Follow up: Home next few days?
[2017-03-04 05:31] LABS: HEMATOCRIT 26.1 % (33.0-50.0); HEMOGLOBIN 8.4 g/dL (11.0-16.0); MCH 28.7 pg (27.0-34.0); MCHC 32.2 gm/dL (32.0-36.5); MCV 89.1 fl (83.0-98.0); MPV 10.5 fl (9.4-12.4); PLATELET COUNT 137 K/uL (150-450); RBC 2.93 M/uL (3.50-5.50); RDW-CV 13.8 % (11.9-14.6); WBC 4.8 K/uL (4.0-11.0)
[2017-03-04 05:50] LABS: ALBUMIN 2.4 gm/dL (3.5-5.0); TOTAL PROTEIN 5.6 g/dL (6.0-8.4)
[2017-03-04 05:51] LABS: CREATININE 4.4 mg/dL (0.6-1.3); TOTAL BILIRUBIN 0.6 mg/dL (0.0-1.5)
[2017-03-04 06:10] LABS: ABSOLUTE NEUTROPHIL CT (ANC) 3.9 K/uL (1.4-9.0); BANDED NEUTROPHIL # 0.3 K/uL (0.0-0.1); BANDED NEUTROPHILS % 6 %; LYMPHOCYTE # 0.6 K/uL (0.8-4.0); LYMPHOCYTE % 13 %; MONOCYTE # 0.1 K/uL (0.0-1.0); SEGMENTED NEUTROPHIL # 3.6 K/uL (1.4-9.0); SEGMENTED NEUTROPHIL % 75 %
--- NOTE | 2017-03-04 08:46 | NUR ---
A-NUTRITION F/U CBW: 91.8; WT DOWN FROM ADMIT WT. HAS BEEN RECEIVING IV BUMEX. LABS: NA 142, K+ 4.0, GLU 156, BUN 69, REPTILE FARMER 4.4, ALB 2.4 MEDS: BUMEX, NORCO, PEPCID, MVI, PRN BOWEL MEDS, LEVEMIR, VIT C, NOVOLOG (MILD SS) DIET RX: CONSISTENT CARB/RENAL DIET. PO INTAKE 75-100% EST NUTR NEEDS: [id number] KCALS (20-25 KCALS/KG) 73-92 GM PROTEIN (0.8-1.0 GM/KG) 1 ML FLUID/KCAL D-NOT AT NUTRITION RISK; NO NUTRITION DX IDENTIFIED I-CONTINUE W/CURRENT DIET RX M/E-WILL ASSIST NEEDED
--- NOTE | 2017-03-04 14:46 | NUR ---
I did speak with and explained [facility] will accept and she agree's to this. I explained most likely ready tomorrow and she thinks that as well. I did call and updated Luis at [facility]. ID screen done.
--- NOTE | 2017-03-04 16:48 | NUR ---
Significant Event: GOOD DAY, REALLY WANTS TO GO "HOME". MAYBE A LITTLE MORE FORGETFUL/CONFUSED TODAY.VEIN MAPPING TO BE DONE, FOR FISTULA PLACEMENT AT SOME POINT. STARTING TEST IRON DOSE 1640, IF NO REACTION WILL GET REST OF IRON DOSE STARTED. Follow up: [facility]IOR [facility]OMARROW? PT IS SUPPOSE TO HAVE 2 MORE DOSES OF IV IRON BY WEDNESDAY.....
[2017-03-05 04:13] LABS: HEMATOCRIT 24.1 % (33.0-50.0); HEMOGLOBIN 7.8 g/dL (11.0-16.0); MCHC 32.4 gm/dL (32.0-36.5); MCV 89.6 fl (83.0-98.0); MPV 10.7 fl (9.4-12.4); PLATELET COUNT 129 K/uL (150-450); RBC 2.69 M/uL (3.50-5.50); RDW-CV 13.9 % (11.9-14.6); WBC 4.6 K/uL (4.0-11.0)
[2017-03-05 04:30] LABS: ALBUMIN 2.4 gm/dL (3.5-5.0); ANION GAP 15.8 (10.0-19.0); CALCIUM 7.9 mg/dL (8.5-10.5); CREATININE 4.1 mg/dL (0.6-1.3); POTASSIUM 3.8 mMol/L (3.7-5.1); TOTAL BILIRUBIN 0.4 mg/dL (0.0-1.5); TOTAL PROTEIN 5.4 g/dL (6.0-8.4)
--- NOTE | 2017-03-05 04:51 | NUR ---
Significant events: Pt A/Ox3. VSS. No complaints of pain. Up 1PA. BM this shift. CPAP at night, 3L/NC when awake. Hunter in place. 900mL UOP. Slept most of shift.
[2017-03-05 05:53] LABS: ABSOLUTE NEUTROPHIL CT (ANC) 3.9 K/uL (1.4-9.0); BANDED NEUTROPHILS % 1 %; LYMPHOCYTE # 0.4 K/uL (0.8-4.0); LYMPHOCYTE % 9 %; MONOCYTE # 0.2 K/uL (0.0-1.0); SEGMENTED NEUTROPHIL # 3.8 K/uL (1.4-9.0); SEGMENTED NEUTROPHIL % 83 %
--- NOTE | 2017-03-05 11:50 | NUR ---
Reviewed dismissal plans left by SALTY Austin. The plan appears to be that Aleksandr is going to be dismissed to [facility] today, I just needed to set up a [place] van time and then update . I reviewed his charting and noticed that JANENE Ugalde had wrote last night about wanting to do two more rounds of IV Iron before Wednesday so I went up and talked with JANENE Ugalde about this. SHe states that the plan had been for Aleksandr to get those two rounds of IV Iron and then he could go but that would delay dismissal. I phoned Dr. Agarwal, let him know we were planning on Aleksandr going to SNF today but if he needed IV Iron, we would just keep him. tells me that he is fine if we send him without Aleksandr getting the next two doses of IV Iron. I called Erika at [facility] to update her that Aleksandr could come to them today. Set up van time for 1200. Updated JANENE Ugalde and to this. They were both in agreement with the plan. I stopped into [facility] room and updated him and , they were in agreement as well. Dismissal orders were filled out by and faxed over by myself to [facility] prior to Aleksandr leaving. CM to continue to follow and assist.
--- NOTE | 2017-03-05 13:22 | NUR ---
1215 PT DISMISSED TO [facility] WITH STAGE SETTINGS PAINTER, PACKET SENT WITH STAGE SETTINGS PAINTER, PT SENT IN W/C WITH O2 AT 4L NC. ALL PERSONAL BELONGINGS SENT WITH DRIVE. AWARE AND HELPED PACK UP C PAP, AND OTHER PERSONAL BELONGINGS. AT TIME OF DC PT IS ALERT AND ORIENTED FOR THE MOST PART. DOES FORGET THE DAY AND DATE AT TIMES BUT MOSTLY IS ORIENTED X3. STANDS WITH ASSIST OF 1, GAIT BELTAND WALKER. PINK WARM AND DRY, LUNGS ARE CLEAR AND DIMIISHED IN THE BASES, ABDOMEN IS SOFT AND NONTENDER WITH PRESENT BOWEL SOUNDS. PT DID HAVE A BM LAST NIGHT AT SHIFT CHANGE AFTER A SUPPOSITORY EARLIER IN THE AFTERNOON. PULSES ARE PALAPBLE AND HE DOES HAVE SOME SLIGHT GENERAL, PEDAL AND ANKLE EDEMA. INSTRUCTED ON FLUID RESTRICTION, KIDNEYS AND HEART FAILURE.DISMISSAL PACKET SENT WITH FRANCIA DESAI DRIVER. W/C TO [facility] FOR DC TO [facility]. JUNIOR AND IV DC'D 1 HOUR PRIOR TO DISCHARGE.
[2017-03-30] MEDS ORDERED: THERA PO (10:21)
[2017-03-30] MEDS ORDERED: DULCOLAX10 MG R (10:22)
[2017-03-30] MEDS ORDERED: MILK OF MA400 MG/5 M PO (10:23)
[2017-03-30] MEDS ORDERED: BUMEX1 MG PO (10:25)
[2017-03-30] MEDS ORDERED: IMDUR30 MG PO (10:29)
[2017-03-30] MEDS ORDERED: APRESOLINE50 MG PO (10:31)
[2017-03-30] MEDS ORDERED: NOVOLOG100 UNIT/M SUB-Q (10:35)
[2017-03-30] MEDS ORDERED: GLUCAGON EMERGEN1 MG SUB-Q (10:36)
[2017-03-30] MEDS ORDERED: GLUCOSE4 GM PO (10:37)
[2017-04-08] MEDS ORDERED: NORCO 5-325 TA1 EACH PO (09:28)
== END 2017-03-05 12:30 | DRG 682 ==
LOC: GPCU 17:53
PROVIDERS: Family Medicine; ADMIT Internal Medicine
DX: N17.9 Acute kidney failure, unspecified (principal); I50.33 Acute on chronic diastolic (congestive) heart failure; J96.21 Acute and chronic respiratory failure with hypoxia; G93.1 Anoxic brain damage, not elsewhere classified; J96.22 Acute and chronic respiratory failure with hypercapnia; I13.0 Hypertensive heart and chronic kidney disease with heart failure and stage 1 through stage 4 chronic kidney disease, or unspecified chronic kidney disease; I50.32 Chronic diastolic (congestive) heart failure; N18.4 Chronic kidney disease, stage 4 (severe); E11.22 Type 2 diabetes mellitus with diabetic chronic kidney disease; J44.9 Chronic obstructive pulmonary disease, unspecified; G47.33 Obstructive sleep apnea (adult) (pediatric); D63.1 Anemia in chronic kidney disease; E87.5 Hyperkalemia; E83.52 Hypercalcemia; Z79.82 Long term (current) use of aspirin; Z85.118 Personal history of other malignant neoplasm of bronchus and lung; Z85.46 Personal history of malignant neoplasm of prostate; Z87.891 Personal history of nicotine dependence; F03.90 Unspecified dementia, unspecified severity, without behavioral disturbance, psychotic disturbance, mood disturbance, and anxiety; R26.89 Other abnormalities of gait and mobility
CPT/HCPCS: A9270; G0237; G0424; J0885; J1644; J1940; J2405; J2916; J7030; J7040; J7050; Q4081

== ENCOUNTER → 2017-03-31 | Outpatient (CLI) | payer MEDICARE, BC ==
[~2017-03-31] MED LIST changes: +APRESOLINE50 MG PO; +BUMEX1 MG PO; +COLACE100 MG PO; +COZAAR50 MG PO; +DULCOLAX10 MG R; +GLUCAGON EMERGEN1 MG SUB-Q; +GLUCOSE4 GM PO; +IMDUR30 MG PO; +MILK OF MA400 MG/5 M PO; +NORCO 5-325 TA1 EACH PO; +NOVOLOG100 UNIT/M SUB-Q; +PRESERVISION A1 EAC2 PO; +THERA PO
[2017-03-31 12:33] LABS: HEMATOCRIT 28.2 % (33.0-50.0); HEMOGLOBIN 9.6 g/dL (11.0-16.0); MCH 29.3 pg (27.0-34.0); MPV 10.6 fl (9.4-12.4); PLATELET COUNT 144 K/uL (150-450); RBC 3.28 M/uL (3.50-5.50); RDW-CV 13.1 % (11.9-14.6); WBC 6.6 K/uL (4.0-11.0)
[2017-03-31 12:52] LABS: INR - (THERAPEUTIC) 0.97 (0.92-1.07); PROTIME 10.2 SECONDS (9.8-11.4)
[2017-03-31 13:02] LABS: ABSOLUTE NEUTROPHIL CT (ANC) 5.3 K/uL (1.4-9.0); BANDED NEUTROPHIL # 0.5 K/uL (0.0-0.1); BANDED NEUTROPHILS % 7 %; LYMPHOCYTE # 0.9 K/uL (0.8-4.0); LYMPHOCYTE % 13 %; MONOCYTE # 0.1 K/uL (0.0-1.0); SEGMENTED NEUTROPHIL # 4.8 K/uL (1.4-9.0); SEGMENTED NEUTROPHIL % 73 %
== END | disposition disaster alternative care site (69) ==
LOC: GOPD 03-29
PROVIDERS: Internal Medicine Nephrology
PROC: 0TB03ZX Excision of Right Kidney, Percutaneous Approach, Diagnostic (ICD-10-PCS; principal; 2017-03-31)
DX: N18.4 Chronic kidney disease, stage 4 (severe) (principal); R80.9 Proteinuria, unspecified; J90 Pleural effusion, not elsewhere classified; R91.8 Other nonspecific abnormal finding of lung field
CPT/HCPCS: J2001; J2250; J3010

== ENCOUNTER → 2017-04-08 | Day surgery (SDC) | payer MEDICARE, BC ==
[~2017-04-08] VITALS: Ht 172.7 cm; Wt 87.9 kg
--- NOTE | ~2017-04-08 | OR ---
PATIENT'S NAME: SANTO SOLIMAN [facility] AGE: 81 Y [address] ROOM: [place] [address] LOCATION: [facility] ADMIT DATE: 04/08/2017 OR/Procedure Report DISCHARGE DATE: FAMILY PHYSICIAN: Lg Yarbrough MD ATTENDING PHYSICIAN: CAMILO LESTER SURGEON: Camilo Lester MD MORTARMAN: DATE OF PROCEDURE: 04/08/2017 PREOPERATIVE DIAGNOSIS: End-stage renal disease. POSTOPERATIVE DIAGNOSIS: End-stage renal disease. PROCEDURE: Left arm brachiobasilic AV fistula. BRUSH HOLDER ASSEMBLER: BIJU Ford. ANESTHESIA: General. ESTIMATED FLUID LOSS: 20 mL. FINDINGS: Modest thrill in very small basilic vein at the end of the case. Strong radial and ulnar signal at the end of the case. DESCRIPTION OF PROCEDURE: The patient was brought to the operating room, placed supine on the operating table, and prepped and draped in a sterile manner. After being placed under general anesthesia and receiving preop antibiotics, a preoperative time-out was performed. We made a transverse incision 2 cm proximal to the antecubital fossa. We dissected along the fascia and incised the fascia in a longitudinal manner. We dissected out the brachial artery in a 360-degree fashion. We then proceeded to do the same thing with the basilic vein. This vein was small in nature and easily spasmed even despite dilation with saline. We clamped proximally and distally the artery after administering 5000 units of heparin. We made an arteriotomy to a size of 4 mm and then did a standard 6-0 Prolene anastomosis from the vein to the artery. We removed the clamp. The thrill was present, which was confirmed with Doppler, but the vein did not dilate as much as we had hoped. We will continue to allow this vein to mature. If it does not mature, the patient would definitely need an AV graft. Heparin was reversed with the use of protamine. Deep layers were closed with 2-0 and 3-0 Vicryl. Skin was closed with running 4-0 Monocryl. The patient tolerated the procedure well and was transferred to the recovery room and home later that day. PATIENT'S NAME: SANTO SOLIMAN [facility] AGE: 81 Y [address] ROOM: [place] [address] LOCATION: [facility] ADMIT DATE: 04/08/2017 OR/Procedure Report DISCHARGE DATE: FAMILY PHYSICIAN: Lg Yarbrough MD ATTENDING PHYSICIAN: CAMILO LESTER CAMILO LESTER MD FKM/modl /[id number] d: 04/08/17 2240 t: 04/10/17 0959, OPERATIVE SUMMARY
[2017-04-08 06:23] LABS: HEMATOCRIT 27.5 % (33.0-50.0); HEMOGLOBIN 9.3 g/dL (11.0-16.0); MCH 29.7 pg (27.0-34.0); MCHC 33.8 gm/dL (32.0-36.5); MCV 87.9 fl (83.0-98.0); MPV 10.7 fl (9.4-12.4); PLATELET COUNT 126 K/uL (150-450); RBC 3.13 M/uL (3.50-5.50); RDW-CV 13.2 % (11.9-14.6); WBC 6.1 K/uL (4.0-11.0)
[2017-04-08 06:44] LABS: ALBUMIN 2.5 gm/dL (3.5-5.0); ANION GAP 12.1 (10.0-19.0); CALCIUM 8.8 mg/dL (8.5-10.5); POTASSIUM 4.1 mMol/L (3.7-5.1); TOTAL BILIRUBIN 0.4 mg/dL (0.0-1.5); TOTAL PROTEIN 5.7 g/dL (6.0-8.4)
[2017-04-08 07:01] LABS: ABSOLUTE NEUTROPHIL CT (ANC) 5.1 K/uL (1.4-9.0); BANDED NEUTROPHIL # 0.2 K/uL (0.0-0.1); BANDED NEUTROPHILS % 3 %; LYMPHOCYTE # 0.7 K/uL (0.8-4.0); LYMPHOCYTE % 12 %; MONOCYTE # 0.3 K/uL (0.0-1.0); SEGMENTED NEUTROPHIL # 4.9 K/uL (1.4-9.0); SEGMENTED NEUTROPHIL % 80 %
== END | disposition disaster alternative care site (69) ==
LOC: GSDC 05:30
PROVIDERS: Surgery Vascular Surgery
DX: E11.22 Type 2 diabetes mellitus with diabetic chronic kidney disease (principal); I13.2 Hypertensive heart and chronic kidney disease with heart failure and with stage 5 chronic kidney disease, or end stage renal disease; I50.30 Unspecified diastolic (congestive) heart failure; N18.6 End stage renal disease; D63.1 Anemia in chronic kidney disease; M19.90 Unspecified osteoarthritis, unspecified site; H35.30 Unspecified macular degeneration; E78.00 Pure hypercholesterolemia, unspecified; J44.9 Chronic obstructive pulmonary disease, unspecified; E78.5 Hyperlipidemia, unspecified; G47.33 Obstructive sleep apnea (adult) (pediatric); Z87.891 Personal history of nicotine dependence; Z85.118 Personal history of other malignant neoplasm of bronchus and lung; Z85.46 Personal history of malignant neoplasm of prostate; Z99.89 Dependence on other enabling machines and devices; Z98.41 Cataract extraction status, right eye; Z98.42 Cataract extraction status, left eye; Z98.890 Other specified postprocedural states; Z79.4 Long term (current) use of insulin; Z79.82 Long term (current) use of aspirin; Z79.891 Long term (current) use of opiate analgesic; Z79.899 Other long term (current) drug therapy; Z88.5 Allergy status to narcotic agent
CPT/HCPCS: J0690; J1644; J2001; J2720; J3010; J7030; J7040

== ENCOUNTER → 2017-04-15 | Outpatient (CLI) | payer MEDICARE, BC | END | disposition disaster alternative care site (69) | LOC: LGSMG 14:54 | DX: N18.4 Chronic kidney disease, stage 4 (severe) (principal) ==

== ENCOUNTER → 2017-06-03 | Outpatient (CLI) | payer MEDICARE, BC | LOC: LGSMG 10:09 | DX: R80.9 Proteinuria, unspecified (principal) ==